=== PATIENT | female | born 1980 | race Hispanic/Latino ===

== ENCOUNTER 2016-08-17 09:51 | Inpatient (IN) | payer MEDICAID, OTHER ==
[2016-08-17 10:00] VITALS: BMI 40.2
[2016-08-17] MEDS ORDERED: Sodium Chloride 0.9% 1,000 ML IV STA (10:28)
[2016-08-17 10:47] LABS: BASO # 0.1 K/uL (0.0-0.2); BASO % 0.6 % (0.0-2.0); EOS # 0.3 K/uL (0.0-0.7); EOS % 2.1 % (0.0-4.0); HEMATOCRIT 38.4 % (34.0-47.0); LYMPH # 1.8 K/uL (1.0-4.3); LYMPH % 15.2 % (20.0-40.0); MEAN CELL VOLUME 91.7 fl (81.0-99.0); MEAN CORPUSCULAR HEMOGLOBIN 30.3 pg (27.0-31.0); MEAN CORPUSCULAR HGB CONC 33.1 g/dL (33.0-37.0); MEAN PLATELET VOLUME 9.1 fl (7.2-11.7); MONO # 0.6 K/uL (0.0-0.8); MONO % 5.3 % (0.0-10.0); NEUT # 9.3 K/uL (1.8-7.0); NEUT % 76.8 % (50.0-75.0); NRBC % 0.1 % (0.0-0.0); RED CELL DISTRIBUTION WIDTH 12.6 % (11.5-14.5); WHITE BLOOD COUNT 12.1 K/uL (4.8-10.8)
[2016-08-17 10:50] LABS: ALB/GLOB RATIO 1.1 (1.0-2.1); ALKALINE PHOSPHATASE 82 U/L (38-126); ALT/SGPT 38 U/L (9-52); AST/SGOT 23 U/L (14-36); BILIRUBIN,TOTAL 0.4 mg/dl (0.2-1.3); BLOOD UREA NITROGEN 13 mg/dl (7-17); CALCIUM 8.8 mg/dL (8.4-10.2); CARBON DIOXIDE 22 mmol/L (22-30); CHLORIDE 105 mmol/L (98-107); GFR AFRICAN-AMERICAN > 60; GLUCOSE,RANDOM 96 mg/dL (65-105); LIPASE 73 U/L (23-300); POTASSIUM 4.3 MMOL/L (3.6-5.0); SODIUM 135 mmol/l (132-148); TOTAL PROTEIN 8.1 G/DL (6.3-8.2)
--- NOTE | 2016-08-17 10:50 | RAD ---
HISTORY: epigastric pain COMPARISON: No prior. TECHNIQUE: Chest PA and lateral FINDINGS: LUNGS: No active pulmonary disease. PLEURA: No significant pleural effusion identified. No pneumothorax apparent. CARDIOVASCULAR: Normal. OSSEOUS STRUCTURES: No significant abnormalities. VISUALIZED UPPER ABDOMEN: Normal. OTHER FINDINGS: None. IMPRESSION: No active disease.
--- NOTE | 2016-08-17 11:01 | ED PDOC ---
HPI: Abdomen Time Seen by Provider: 08/17/16 10:05 Chief Complaint (Nursing): Abdominal Pain Chief Complaint (Provider): Abdominal Pain History Per: Patient History/Exam Limitations: no limitations Onset/Duration Of Symptoms: Days (x1 day) Current Symptoms Are (Timing): Still Present Additional Complaint(s): 35 y/o female who presents to the emergency department with a complaint of an upper abdominal pain that radiates towards the back since last night. Reports vomiting x1 with yellow discharge (non-bloody). denies all urinary complaints. Denies shortness of breath, chest pain, fever, runny nose, nausea, diarrhea, or urinary complications. Patient states she medicated with Tylenol without the relief of symptoms. No lower pain. No dysuria. PMD: Dr. Marilynn Lyons MD Past Medical History Reviewed: Historical Data, Nursing Documentation, Vital Signs Vital Signs: Last Vital Signs Temp 98.5 F 08/17/16 12:42 Pulse 72 08/17/16 12:42 Resp 16 08/17/16 12:42 BP 145/70 08/17/16 12:42 Pulse Ox 100 08/17/16 13:51 - Medical History PMH: No Chronic Diseases Denies: Chronic Kidney Disease - Surgical History Surgical History: Appendectomy Other surgeries: Tubal ligation - Family History Family History: States: Unknown Family Hx - Social History Current smoker - smoking cessation education provided: No Alcohol: None Drugs: Denies - Home Medications Home Medications: Ambulatory Orders Medication Instructions Recorded Ergocalciferol (Vitamin D2) 1 cap PO QWK 10/26/15 [Vitamin D2] Naproxen [Naprosyn] 1 tab PO PRN PRN 10/26/15 Cyclobenzaprine [Cyclobenzaprine 10 mg PO TID PRN #20 tab 04/04/16 HCl] Naproxen [Naprosyn] 500 mg PO BID #20 tab 04/04/16 - Allergies Allergies/Adverse Reactions: Allergies Allergy/AdvReac Type Severity Reaction Status Date / Time No Known Allergies Allergy Verified 04/04/16 14:56 Review of Systems ROS Statement: Except As Marked, All Systems Reviewed And Found Negative Constitutional: Negative for: Fever ENT: Negative for: Nose Discharge Cardiovascular: Negative for: Chest Pain Respiratory: Negative for: Shortness of Breath Gastrointestinal: Positive for: Vomiting (x1 episode, yellow color), Abdominal Pain (Epigastric). Negative for: Nausea, Diarrhea, Hematemesis Genitourinary Female: Negative for: Dysuria, Frequency, Incontinence, Hematuria Neurological: Negative for: Weakness Physical Exam - Reviewed Nursing Documentation Reviewed: Yes Vital Signs Reviewed: Yes - Physical Exam Appears: Positive for: Non-toxic, No Acute Distress Head Exam: Positive for: ATRAUMATIC, NORMOCEPHALIC Skin: Positive for: Normal Color, Warm, Dry Eye Exam: Positive for: Normal appearance. Negative for: Conjunctival injection Neck: Positive for: Normal, Supple Cardiovascular/Chest: Positive for: Regular Rate, Rhythm. Negative for: Murmur Respiratory: Positive for: Normal Breath Sounds. Negative for: Accessory Muscle Use, Respiratory Distress Gastrointestinal/Abdominal: Positive for: Tenderness (Epigastric). Negative for : Soft, Distended Back: Positive for: Normal Inspection. Negative for: L CVA Tenderness, R CVA Tenderness Extremity: Positive for: Normal ROM. Negative for: Tenderness, Pedal Edema Neurologic/Psych: Positive for: Alert, Oriented - Laboratory Results Result Diagrams: 08/17/16 10:35 08/17/16 10:35 Interpretation Of Abn Labs: 12.1 wbc - ECG ECG: Positive for: Interpreted By Me, Viewed By Me ECG Rhythm: Positive for: Normal QRS, Normal ST Segment, Sinus Rhythm O2 Sat by Pulse Oximetry: 100 (RA) Pulse Ox Interpretation: Normal - Radiology X-Ray: Interpreted by Me, Viewed By Ok X-Ray Interpretation: No Acute Disease - Progress ED Course And Treament: 1349: Stable. Spoke with Dr. Aponte. Will consult. States clinically cholecystits. Will need admit. Spoke with Dr. Mckinnon, pt. pcp. Wants Dr. Villanueva to admit. 1415: Spoke with Dr. Villanueva. Will admit medsurg and give further orders when pt. reaches floor. Medical Decision Making Medical Decision Making: Time: 10:05 Initial impression: Abdominal pain Initial plan: --Electrocardiogram Stat --COMP Metabolic Panel --Lipase Stat --Troponin I stat --ED Urine (POC) --EKG-ED (EDNURTX) Stat --CBC w/ differential --Sodium Chloride 1,000 ml IV 1,000 mls.hr --Pepcid 20 mg IVP --Abdomen Limited US --Revaluation Time: 10:48 Chest X-ray FINDINGS: LUNGS: No active pulmonary disease. PLEURA: No significant pleural effusion identified. No pneumothorax apparent. CARDIOVASCULAR: Normal. OSSEOUS STRUCTURES: No significant abnormalities. VISUALIZED UPPER ABDOMEN: Normal. OTHER FINDINGS: None. IMPRESSION: No active disease. Time: 12:38 --Abdomen US FINDINGS: LIVER: Measures 16 cm in length. Diffusely increased echogenicity of the liver parenchyma. There is an area of mild hypo echogenicity adjacent to the gallbladder representing focal fatty sparing. A possible subtle area of increased density seen on the prior CT scan within the anterior dome of the liver on axial image 17 is not as well seen on this ultrasound exam. This may represent subcapsular hemangioma or another area of focal fatty sparing. No intrahepatic ductal dilatation was seen. GALLBLADDER: Single 2 centimeter gallstone in the gallbladder. No gallbladder wall thickening is identified. No pericholecystic fluid. Gallbladder wall measures under 2 millimeters. A small amount of sonographic Sims sign was elicited by the technologist. This is nonspecific. COMMON BILE DUCT: Measures 4-5 mm. No stones. No dilatation. PANCREAS: Pancreas is mildly heterogeneous in echogenicity without focal mass. No definite peripancreatic inflammatory changes are seen. The tail of the pancreas was obscured by bowel gas. RIGHT KIDNEY: Measures 10.5 cm in length. There is evidence of a round echogenic solid mass in the antral-lateral aspect of the midpole of the right kidney. This was seen on the prior CT scan. On the present examination this measures 2.4 centimeters x 2.2 centimeters. This is unchanged from the measurements on the prior study. This is more than likely apprenticeship training representative of an angiomyolipoma. No hydronephrosis was seen. No renal calculus or new mass in the right kidney is noted. AORTA: No aneurysmal dilatation. IVC: Unremarkable. OTHER FINDINGS: No ascites is seen. IMPRESSION: Single 2 centimeter gallstone. No gallbladder wall thickening or pericholecystic fluid seen to suggest acute cholecystitis. Sonographic Isms' s sign was elicited, nonspecific. Stable echogenic soft tissue mass in the lateral aspect of the midpole of the right kidney from prior CT scan from 2012. This probably represents an angiomyolipoma. The should be followed clinically as these are at increased risk for bleeding. This was discussed with the emergency room physician at the time of the dictation. Diffuse fatty infiltration of the liver with focal fatty sparing adjacent to the gallbladder. --Pending surgical for consult. Scribe Attestation: Documented by Li Medina, acting as a scribe for Ra Tubbs MD. Provider Scribe Attestation: All medical record entries made by the Scribe were at my direction and personally dictated by me. I have reviewed the chart and agree that the record accurately reflects my personal performance of the history, physical exam, medical decision making, and the department course for this patient. I have also personally directed, reviewed, and agree with the discharge instructions and disposition. Disposition - Clinical Impression Clinical Impression: Biliary colic, Cholecystitis - Patient ED Disposition Is Patient to be Admitted: Yes Counseled Patient/Family Regarding: Studies Performed, Diagnosis - Disposition Disposition Time: 14:15 Condition: FAIR - Pt Status Changed To: Hospital Disposition Of: Inpatient - Admit Certification Admit to Inpatient:: After my assessment, the patient will require hospitalization for at least two midnights. This is because of the severity of symptoms shown, intensity of services needed, and/or the medical risk in this patient being treated as an outpatient. - POA Present On Arrival: None
--- NOTE | 2016-08-17 12:40 | US ---
HISTORY: gallstones and pain COMPARISON: CT scan 11/29/2012 TECHNIQUE: Sonographic evaluation of the right upper quadrant of the abdomen. FINDINGS: LIVER: Measures 16 cm in length. Diffusely increased echogenicity of the liver parenchyma. There is an area of mild hypo echogenicity adjacent to the gallbladder representing focal fatty sparing. A possible subtle area of increased density seen on the prior CT scan within the anterior dome of the liver on axial image 17 is not as well seen on this ultrasound exam. This may represent subcapsular hemangioma or another area of focal fatty sparing. No intrahepatic ductal dilatation was seen. GALLBLADDER: Single 2 centimeter gallstone in the gallbladder. No gallbladder wall thickening is identified. No pericholecystic fluid. Gallbladder wall measures under 2 millimeters. A small amount of sonographic Sims sign was elicited by the technologist. This is nonspecific. COMMON BILE DUCT: Measures 4-5 mm. No stones. No dilatation. PANCREAS: Pancreas is mildly heterogeneous in echogenicity without focal mass. No definite peripancreatic inflammatory changes are seen. The tail of the pancreas was obscured by bowel gas. RIGHT KIDNEY: Measures 10.5 cm in length. There is evidence of a round echogenic solid mass in the antral-lateral aspect of the midpole of the right kidney. This was seen on the prior CT scan. On the present examination this measures 2.4 centimeters x 2.2 centimeters. This is unchanged from the measurements on the prior study. This is more than likely field representative/health education of an angiomyolipoma. No hydronephrosis was seen. No renal calculus or new mass in the right kidney is noted. AORTA: No aneurysmal dilatation. IVC: Unremarkable. OTHER FINDINGS: No ascites is seen. IMPRESSION: Single 2 centimeter gallstone. No gallbladder wall thickening or pericholecystic fluid seen to suggest acute cholecystitis. Sonographic Sims's sign was elicited, nonspecific. Stable echogenic soft tissue mass in the lateral aspect of the midpole of the right kidney from prior CT scan from 2012. This probably represents an angiomyolipoma. The should be followed clinically as these are at increased risk for bleeding. This was discussed with the emergency room physician at the time of the dictation. Diffuse fatty infiltration of the liver with focal fatty sparing adjacent to the gallbladder.
[2016-08-17] MEDS ORDERED: Piperacillin/Tazobact 3.375 GM in Sodium Chloride 0.9% 100 ML IV STA (13:51)
[2016-08-17] MEDS ORDERED: Piperacillin/Tazobact 3.375 gm Inj IVPB ONE (14:15)
[2016-08-17] MEDS: Sodium Chloride 0.9% 1,000 ML IV SCH (17:10)
[2016-08-17] MEDS: Piperacillin/Tazobact 3.375 GM in Sodium Chloride 0.9% 100 ML IVPB SCH (20:30)
--- NOTE | 2016-08-17 20:49 | CP.PCM.CON ---
<Bartolome Sifuentes - Last Filed: 08/17/16 20:49> History of Present Illness - History of Present Illness History of Present Illness: General Surgery Consult Re: Cholecystitis vs cholelithiasis HPI: 35F presenting to ER with RUQ abd pain since last night. Radiates to back. + nausea, 1 episode of NBNB emesis. Tried tylenol without relief. No F/C, SOB, diarrhea, dysuria. Currently has nausea and an episode of bilious emesis (50cc) . PMH: Denies PSH: Appendectomy, tubal ligation SH: No tobacco, EtOH, Drug use All: NKDA Meds: Denies Review of Systems - Review of Systems All systems: reviewed and no additional remarkable complaints except (as per HPI ) Past Patient History - Infectious Disease Hx of Infectious Diseases: None - Past Medical History & Family History Past Medical History?: Yes - Past Social History Smoking Status: Never Smoked - CARDIAC Hx Cardiac Disorders: No - PULMONARY Hx Respiratory Disorders: No - NEUROLOGICAL Hx Neurological Disorder: No - HEENT Hx HEENT Problems: Yes (GLASSES) - RENAL Hx Chronic Kidney Disease: No - ENDOCRINE/METABOLIC Hx Endocrine Disorders: No - HEMATOLOGICAL/ONCOLOGICAL Hx Blood Disorders: No Hx AIDS: No Hx Human Immunodeficiency Virus (HIV): No - INTEGUMENTARY Hx Dermatological Problems: No - MUSCULOSKELETAL/RHEUMATOLOGICAL Hx Musculoskeletal Disorders: No Hx Falls: No - GASTROINTESTINAL Hx Gastrointestinal Disorders: No - GENITOURINARY/GYNECOLOGICAL Hx Reproductive Disorders: Yes (ABNORMAL UTERINE BLEEDING) - PSYCHIATRIC Hx Psychophysiologic Disorder: No Hx Substance Use: No - SURGICAL HISTORY Hx Appendectomy: Yes Hx Tubal Ligation: Yes - ANESTHESIA Hx Anesthesia: Yes Hx Anesthesia Reactions: No Hx Malignant Hyperthermia: No Has any member of the family had a problem w/ anesthesia?: No Meds Allergies/Adverse Reactions: Allergies Allergy/AdvReac Type Severity Reaction Status Date / Time No Known Allergies Allergy Verified 04/04/16 14:56 - Medications Medications: Current Medications Sodium Chloride (Sodium Chloride 0.9%) 1,000 mls @ 125 mls/hr IV .Q8H [facility] Stop: 08/18/16 16:16 Last Admin: 08/17/16 17:10 Dose: 125 mls/hr Piperacillin Sod/Tazobactam (Sod 3.375 gm/ Sodium Chloride) 100 mls @ 100 mls/ hr IVPB Q12 LEW Last Admin: 08/17/16 20:30 Dose: 100 mls/hr Morphine Sulfate (Morphine) 4 mg IVP Q4 PRN PRN Reason: Pain, moderate (4-7) Last Admin: 08/17/16 17:10 Dose: 4 mg Ondansetron HCl (Zofran Inj) 4 mg IVP Q4 PRN PRN Reason: Nausea/Vomiting Last Admin: 08/17/16 19:44 Dose: 4 mg Physical Exam - Constitutional Appears: Non-toxic, No Acute Distress - Head Exam Head Exam: ATRAUMATIC, NORMOCEPHALIC - Eye Exam Eye Exam: EOMI. absent: Scleral icterus - ENT Exam ENT Exam: Mucous Membranes Moist Additional comments: trachea midline - Respiratory Exam Respiratory Exam: NORMAL BREATHING PATTERN. absent: Respiratory Distress - GI/Abdominal Exam GI & Abdominal Exam: Guarding (in RUQ), Soft, Tenderness (in RUQ and epigastrum) . absent: Distended, Firm, Rigid Additional comments: gallbladder palpable, + murphys - Extremities Exam Extremities exam: Positive for: normal capillary refill, pedal pulses present. Negative for: calf tenderness - Back Exam Back exam: absent: CVA tenderness (L), CVA tenderness (R) - Neurological Exam Neurological exam: Alert, Oriented x3 - Psychiatric Exam Psychiatric exam: Normal Affect, Normal Mood - Skin Skin Exam: Dry, Warm Results - Vital Signs Recent Vital Signs: Last Vital Signs Temp 98.3 F 08/17/16 16:07 Pulse 74 08/17/16 16:07 Resp 16 08/17/16 16:07 BP 129/82 08/17/16 16:07 Pulse Ox 98 08/17/16 16:07 - Labs Result Diagrams: 08/17/16 10:35 08/17/16 10:35 - Imaging and Cardiology US - abdomen Status: Image reviewed by me, Report reviewed by me Additional comment: 2cm stone Assessment & Plan - Assessment and Plan (Free Text) Assessment: 35F with biliary colic Plan: F/U AM labs NPO p MN Morphine Zofran Zosyn IVF D/W Dr. Jonnathan Sifuentes PGY3 <Dav De Santiago - Last Filed: 08/17/16 21:43> Meds - Medications Medications: Current Medications Sodium Chloride (Sodium Chloride 0.9%) 1,000 mls @ 125 mls/hr IV .Q8H LEW Stop: 08/18/16 16:16 Last Admin: 08/17/16 17:10 Dose: 125 mls/hr Piperacillin Sod/Tazobactam (Sod 3.375 gm/ Sodium Chloride) 100 mls @ 100 mls/ hr IVPB Q12 LEW Last Admin: 08/17/16 20:30 Dose: 100 mls/hr Morphine Sulfate (Morphine) 4 mg IVP Q4 PRN PRN Reason: Pain, moderate (4-7) Last Admin: 08/17/16 17:10 Dose: 4 mg Ondansetron HCl (Zofran Inj) 4 mg IVP Q4 PRN PRN Reason: Nausea/Vomiting Last Admin: 08/17/16 19:44 Dose: 4 mg Results - Vital Signs Recent Vital Signs: Last Vital Signs Temp 98.3 F 08/17/16 16:07 Pulse 74 08/17/16 16:07 Resp 16 08/17/16 16:07 BP 129/82 08/17/16 16:07 Pulse Ox 98 08/17/16 16:07 - Labs Result Diagrams: 08/17/16 10:35 08/17/16 10:35 Attending/Attestation - Attestation I have personally seen and examined this patient.: Yes I have fully participated in the care of the patient.: Yes I have reviewed all pertinent clinical information: Yes Notes (Text): 08/17/16 21:42 Pt was seen and examined at bedside on 08/17/16 Agree with above note and assessment Pt with Cholelithiasis with Leucocystosis C/w IV antibiotics Liquid diet Repeat CBC and LFTs Plan d/w pt in detail Risk and benefit explained in detail
[2016-08-18] MEDS: Sodium Chloride 0.9% 1,000 ML IV SCH ×2 (02:53→08:35)
[2016-08-18 07:10] LABS: BASO # 0.1 K/uL (0.0-0.2); BASO % 0.6 % (0.0-2.0); EOS # 0.3 K/uL (0.0-0.7); EOS % 2.9 % (0.0-4.0); HEMATOCRIT 34.8 % (34.0-47.0); LYMPH # 2.4 K/uL (1.0-4.3); LYMPH % 20.3 % (20.0-40.0); MEAN CELL VOLUME 92.9 fl (81.0-99.0); MEAN CORPUSCULAR HEMOGLOBIN 30.2 pg (27.0-31.0); MEAN CORPUSCULAR HGB CONC 32.5 g/dL (33.0-37.0); MEAN PLATELET VOLUME 9.5 fl (7.2-11.7); MONO % 8.6 % (0.0-10.0); NEUT # 7.9 K/uL (1.8-7.0); NEUT % 67.6 % (50.0-75.0); NRBC % 0.2 % (0.0-0.0); RED CELL DISTRIBUTION WIDTH 12.7 % (11.5-14.5); WHITE BLOOD COUNT 11.7 K/uL (4.8-10.8)
[2016-08-18 07:25] LABS: PARTIAL THROMBOPLASTIN TIME 28.7 SECONDS (23.3-32.5)
[2016-08-18 07:39] LABS: BLOOD UREA NITROGEN 10 mg/dl (7-17); CARBON DIOXIDE 24 mmol/L (22-30); CHLORIDE 106 mmol/L (98-107); GFR AFRICAN-AMERICAN > 60; GLUCOSE,RANDOM 92 mg/dL (65-105); POTASSIUM 3.8 MMOL/L (3.6-5.0); SODIUM 142 mmol/l (132-148)
[2016-08-18] MEDS: Piperacillin/Tazobact 3.375 GM in Sodium Chloride 0.9% 100 ML IVPB SCH ×2 (08:33→20:02)
--- NOTE | 2016-08-18 08:46 | CP.PCM.PCO ---
Physician Communication Note - Physician Communication Note Physician Communication Note: pt for OR kael tenorio today
--- NOTE | 2016-08-18 09:34 | CARD ---
APPROVED REPORT EKG Measurement Heart [id number] MN [id number] [id number] <Conclusion> Normal sinus rhythm Normal ECG
--- NOTE | 2016-08-18 10:48 | CP.PCM.HP ---
History of Present Illness - History of Present Illness History of Present Illness: This is a 35 y/o female admitted for on and off RUQ pain. seen at the Er and noted elevated WBC 12 k and cholelithiasis. No significant medical history. Present on Admission - Present on Admission Any Indicators Present on Admission: No History of DVT/PE: No History of Uncontrolled Diabetes: No Urinary Catheter: No Decubitus Ulcer Present: No Review of Systems - Gastrointestinal Gastrointestinal: Abdominal Pain Past Patient History - Infectious Disease Hx of Infectious Diseases: None - Past Medical History & Family History Past Medical History?: Yes - Past Social History Smoking Status: Never Smoked - CARDIAC Hx Cardiac Disorders: No - PULMONARY Hx Respiratory Disorders: No - NEUROLOGICAL Hx Neurological Disorder: No - HEENT Hx HEENT Problems: Yes (GLASSES) - RENAL Hx Chronic Kidney Disease: No - ENDOCRINE/METABOLIC Hx Endocrine Disorders: No - HEMATOLOGICAL/ONCOLOGICAL Hx Blood Disorders: No Hx AIDS: No Hx Human Immunodeficiency Virus (HIV): No - INTEGUMENTARY Hx Dermatological Problems: No - MUSCULOSKELETAL/RHEUMATOLOGICAL Hx Musculoskeletal Disorders: No Hx Falls: No - GASTROINTESTINAL Hx Gastrointestinal Disorders: No - GENITOURINARY/GYNECOLOGICAL Hx Reproductive Disorders: Yes (ABNORMAL UTERINE BLEEDING) - PSYCHIATRIC Hx Psychophysiologic Disorder: No Hx Substance Use: No - SURGICAL HISTORY Hx Appendectomy: Yes Hx Tubal Ligation: Yes - ANESTHESIA Hx Anesthesia: Yes Hx Anesthesia Reactions: No Hx Malignant Hyperthermia: No Has any member of the family had a problem w/ anesthesia?: No Meds Allergies/Adverse Reactions: Allergies Allergy/AdvReac Type Severity Reaction Status Date / Time No Known Allergies Allergy Verified 04/04/16 14:56 Physical Exam - Head Exam Head Exam: NORMAL INSPECTION - Eye Exam Eye Exam: Normal appearance - ENT Exam ENT Exam: Mucous Membranes Moist - Respiratory Exam Respiratory Exam: Clear to Auscultation Bilateral - Cardiovascular Exam Cardiovascular Exam: REGULAR RHYTHM - GI/Abdominal Exam GI & Abdominal Exam: Normal Bowel Sounds - Neurological Exam Neurological exam: CN II-XII Intact, Oriented x3 Results - Vital Signs Recent Vital Signs: Last Vital Signs Temp 98.2 F 08/18/16 09:00 Pulse 73 08/18/16 09:00 Resp 20 08/18/16 09:00 BP 109/71 08/18/16 09:00 Pulse Ox 98 08/18/16 07:53 - Labs Result Diagrams: 08/18/16 05:50 08/18/16 05:50 Labs: Laboratory Results - last 24 hr 08/18/16 05:50 WBC 11.7 H RBC 3.74 L Hgb 11.3 L Hct 34.8 MCV 92.9 MCH 30.2 MCHC 32.5 L RDW 12.7 Plt Count 256 MPV 9.5 Neut % (Auto) 67.6 Lymph % (Auto) 20.3 Mathews % (Auto) 8.6 Eos % (Auto) 2.9 Baso % (Auto) 0.6 Neut # 7.9 H Lymph # 2.4 Mathews # 1.0 H Eos # 0.3 Baso # 0.1 PT 10.7 INR 1.03 APTT 28.7 Sodium 142 Potassium 3.8 Chloride 106 Carbon Dioxide 24 Anion Gap 16 BUN 10 Creatinine 0.5 L Est GFR ( Amer) > 60 Est GFR (Non-Af Amer) > 60 Random Glucose 92 Calcium 8.0 L Assessment & Plan (1) Cholecystitis Status: Acute (2) Cholelithiasis Status: Acute - Assessment and Plan (Free Text) Plan: cont meds cont tx NPO Hydrate pain meds surgical eval ID eval. IV antibiotics. medically stable for surgery
[2016-08-18] MEDS ORDERED: Bupivacaine 0.5% Inj(30mL) ONE (14:31)
[2016-08-18] MEDS ORDERED: Lidocaine 1% Inj (20ml) ONE (14:31)
[2016-08-18] MEDS ORDERED: Midazolam 2 MG/2 ML VIAL ONE (15:00)
[2016-08-18] MEDS ORDERED: Propofol 10 mg/ml Inj (20 ML) ONE ×2 (15:00→16:27)
[2016-08-18] MEDS ORDERED: Rocuronium 10 mg/ml (5 ml) ONE (15:00)
[2016-08-18] MEDS ORDERED: Neostigmine Methylsulfate 3mg/3ml Syringe IV ONE (15:01)
[2016-08-18] MEDS ORDERED: Lidocaine 1% Inj (20ml) IJ ONE (16:38)
[2016-08-18] MEDS ORDERED: Bupivacaine 0.5% 50 ML IJ ONE (16:38)
[2016-08-18] MEDS ORDERED: Lactated Ringer's 1,000 ML IV ONE (16:52)
--- NOTE | 2016-08-18 17:02 | PCM.SURG1 ---
Surgeon's Initial Post Op Note - Surgeon's Notes Surgeon: Dr De Santiago Mix Crusher Operator: Dr Phelps PGY2, Dr Beard PGY1 Type of Anesthesia: General Endo Pre-Operative Diagnosis: Cholelithiasis Operative Findings: acute cholecystitis Post-Operative Diagnosis: acute cholecystitis Operation Performed: laparoscopic cholecystectomy Specimen/Specimens Removed: gallbladder Estimated Blood Loss: EBL {In ML}: 15 Blood Products Given: N/A Drains Used: No Drains Post-Op Condition: Good Date of Surgery/Procedure: 08/18/16 Time of Surgery/Procedure: 17:02
[2016-08-18] MEDS: HYDROmorphone 0.5 mg/0.5 ml ISec IVP PRN ×4 (17:05→22:13)
--- NOTE | 2016-08-18 18:48 | OP ---
PROCEDURE DATE: 08/18/2016 PREOPERATIVE DIAGNOSES: 1. Acute cholecystitis and cholelithiasis. 2. Morbid obesity, 3. Possible postoperative adhesions due to previous appendectomy. POSTOPERATIVE DIAGNOSES: 1. Acute on chronic cholecystitis. 2. Cholelithiasis. 3. Extensive postinfectious and postoperative adhesion. 4. Morbid obesity. PROCEDURE DONE: 1. Laparoscopic cholecystectomy. 2. Laparoscopic extensive lysis of adhesion. SURGEON: Dav De Santiago MD ENTRY LEVEL PROJECT COORDINATOR: Ethan Phelps, PGY-2 resident ANESTHESIA: General endotracheal tube anesthesia. ESTIMATED BLOOD LOSS: Around 50 mL. DRAINS: None. PATHOLOGY: Gallbladder with gallstone was sent for pathology. COMPLICATIONS: None. INTRAOPERATIVE FINDINGS: The patient had extensive postinfectious and postoperative adhesion. There was a phlegmon of the gallbladder, omentum and duodenum, and there was extensive inflammation in the right upper quadrant. INTRAOPERATIVE STEPS: This 35-year-old female was diagnosed with acute cholecystitis and cholelithiasis and patient was consented for laparoscopic cholecystectomy, possible open. Brought to the OR, placed supine on the operating table. After induction of the anesthesia, abdomen was prepped and draped in a usual sterile fashion. The supraumbilical transverse 1.5 cm incision was made. After incising skin and subcutaneous tissue, the fascia was incised in the line of incision. Chante port was placed, pneumo was created. After creation of pneumoperitoneum, the 12 mm port was placed in the midline just below the costal margin. Another two 5 mm ports were placed in the midclavicular and anterior axillary line. After the grasper and dissector was introduced, the patient found to have extensive edema and thickened gallbladder with the phlegmon, and the first extensive lysis of adhesion was done. The gallbladder was aspirated and gallbladder was retracted cranially. Calot's triangle dissection was done. The patient also had extensive inflammatory adhesion that was taken down. Hemostasis was achieved. Cystic duct and cystic artery were identified and clipped at 3 places and cut in between 2 clips near the gallbladder. Gallbladder was dissected free from the gallbladder fossa, taken in the EndoCatch bag, taken out through the umbilical port site and sent off the table for the pathology. There was a proper hemostasis in each and every part of the procedure. After suction irrigation of the right upper quadrant and gallbladder fossa and after proper hemostasis, all the ports were taken out under vision. Pneumo was deflated. Umbilical port site was closed in 2 layers: The fascia with 0 Vicryl interrupted sutures, the skin with a 4-0 Monocryl. Dry sterile dressing was applied. The patient tolerated the procedure well. Count of instruments and gauze was correct. There was no apparent complication. The patient tolerated the procedure well. The patient was sent to the postanesthesia care unit in stable condition. Dav De Santiago MD cc: [id number] TT: 08/18/2016 18:47:31 meagan RIVAS
[2016-08-19] MEDS: HYDROmorphone 0.5 mg/0.5 ml ISec IVP PRN ×2 (01:40→06:43)
[2016-08-19 06:39] LABS: HEMATOCRIT 33.6 % (34.0-47.0); MEAN CELL VOLUME 93.5 fl (81.0-99.0); MEAN CORPUSCULAR HGB CONC 32.1 g/dL (33.0-37.0); RED CELL DISTRIBUTION WIDTH 12.8 % (11.5-14.5); WHITE BLOOD COUNT 13.4 K/uL (4.8-10.8)
[2016-08-19 06:57] LABS: BLOOD UREA NITROGEN 7 mg/dl (7-17); CARBON DIOXIDE 25 mmol/L (22-30); CHLORIDE 103 mmol/L (98-107); GFR AFRICAN-AMERICAN > 60; GLUCOSE,RANDOM 73 mg/dL (65-105); POTASSIUM 4.2 MMOL/L (3.6-5.0); SODIUM 140 mmol/l (132-148)
[2016-08-19] MEDS ORDERED: Oxycodone/Acetaminophen 5/325 mg Tab PO PRN (07:25)
--- NOTE | 2016-08-19 07:28 | CP.PCM.PN ---
Subjective - Date & Time of Evaluation Date of Evaluation: 08/19/16 Time of Evaluation: 06:40 - Subjective Subjective: Gen Surg: Dr. De Santiago Patient seen and examined at bedside. Reports having generalized abdominal pain/ tenderness. Pt states she has tolerated liquids. Denies nausea/vomiting. NAEO. Review of vitals is normal. Objective - Vital Signs/Intake and Output Vital Signs (last 24 hours): Temp Pulse Resp BP Pulse Ox 98.6 F 84 19 119/79 98 08/19/16 05:30 08/19/16 05:30 08/19/16 05:30 08/19/16 05:30 08/19/16 05:30 - Medications Medications: Current Medications Hydromorphone HCl (Dilaudid) 0.5 mg IVP Q3 PRN PRN Reason: Pain, moderate (4-7) Last Admin: 08/19/16 06:43 Dose: 0.5 mg Piperacillin Sod/Tazobactam (Sod 3.375 gm/ Sodium Chloride) 100 mls @ 100 mls/ hr IVPB Q12 LEW Last Admin: 08/18/16 20:02 Dose: 100 mls/hr Ondansetron HCl (Zofran Inj) 4 mg IVP Q4 PRN PRN Reason: Nausea/Vomiting Last Admin: 08/17/16 19:44 Dose: 4 mg Oxycodone/Acetaminophen (Percocet 5/325 Mg Tab) 2 tab PO Q6 PRN PRN Reason: Pain, moderate (4-7) Stop: 08/22/16 07:26 - Labs Labs: 08/19/16 05:25 08/19/16 05:25 PT 10.7 SECONDS (9.6-11.2) 08/18/16 05:50 INR 1.03 (0.92-1.08) 08/18/16 05:50 APTT 28.7 SECONDS (23.3-32.5) 08/18/16 05:50 - Constitutional Appears: No Acute Distress - Head Exam Head Exam: ATRAUMATIC - Eye Exam Eye Exam: EOMI, Normal appearance - ENT Exam ENT Exam: Mucous Membranes Moist - Respiratory Exam Respiratory Exam: NORMAL BREATHING PATTERN - Cardiovascular Exam Cardiovascular Exam: +S1, +S2 - GI/Abdominal Exam GI & Abdominal Exam: Soft, Tenderness - Neurological Exam Neurological Exam: Alert, Awake, Oriented x3 - Psychiatric Exam Psychiatric exam: Normal Mood - Skin Skin Exam: Dry, Intact, Warm Assessment and Plan - Assessment and Plan (Free Text) Assessment: 35F s/p laparoscopic cholecystectomy POD #1 -Clear for d/c from surgical standpoint as long as pt tolerates diet -C/w Abx -C/w analgesics/anti-emetics -DVT/GI ppx -Encourage ambulation & IS us -F/u w/ Dr. De Santiago in 7-10 days -D/w Dr. De Santiago
[2016-08-19 08:12] VITALS: BP 115/73; PULSE 79; RESP 20; TEMP 98.9; O2SAT 96
[2016-08-19] MEDS: Piperacillin/Tazobact 3.375 GM in Sodium Chloride 0.9% 100 ML IVPB SCH (08:12)
--- NOTE | 2016-08-19 10:26 | CP.PCM.CON ---
History of Present Illness - History of Present Illness History of Present Illness: 5F presenting to ER with RUQ abd pain since last night. Radiates to back. + nausea, 1 episode of NBNB emesis. Tried tylenol without relief. No F/C, SOB, diarrhea, dysuria. Currently has nausea and an episode of bilious emesis (50cc) . PMH: Denies PSH: Appendectomy, tubal ligation SH: No tobacco, EtOH, Drug use All: NKDA Meds: Denies Review of Systems - Constitutional Constitutional: As Per HPI - EENT Eyes: absent: As Per HPI, Blind Spots, Blurred Vision, Change in Vision, Decreased Night Vision, Diplopia, Discharge, Dry Eye, Exophthalmos, Floaters, Irritation, Itchy Eyes, Loss of Peripheral Vision, Pain, Photophobia, Requires Corrective Lenses, Sees Flashes, Spots in Vision, Tunnel Vision, Other Visual Disturbances, Loss of Vision, Other Ears: absent: As Per HPI, Decreased Hearing, Ear Discharge, Ear Pain, Tinnitus, Abnormal Hearing, Disequilibrium, Dizziness, Other Nose/Mouth/Throat: absent: As Per HPI, Epistaxis, Nasal Congestion, Nasal Discharge, Nasal Obstruction, Nasal Trauma, Nose Pain, Post Nasal Drip, Sinus Pain, Sinus Pressure, Bleeding Gums, Change in Voice, Dental Pain, Dry Mouth, Dysphagia, Halitosis, Hoarsness, Lip Swelling, Mouth Lesions, Mouth Pain, Odynophagia, Sore Throat, Throat Swelling, Tongue Swelling, Facial Pain, Neck Pain, Neck Mass, Other - Breasts Breasts: absent: As Per HPI, Change in Shape, Mass, Pain, Nipple Discharge, Nipple Inversion, Skin Changes, Swelling, Other - Cardiovascular Cardiovascular: absent: As Per HPI, Acrocyanosis, Chest Pain, Chest Pain at Rest , Chest Pain with Activity, Claudication, Diaphoresis, Dyspnea, Dyspnea on Exertion, Edema, Irregular Heart Rhythm, Pain Radiating to Arm/Neck/Jaw, Leg Edema, Leg Ulcers, Lightheadedness, Orthopnea, Palpitations, Paroxysmal Nocturnal Dyspnea, Pedal Edema, Radiating Pain, Rapid Heart Rate, Slow Heart Rate, Syncope, Other - Respiratory Respiratory: absent: As Per HPI, Cough, Dyspnea, Hemoptysis, Dyspnea on Exertion , Wheezing, Snoring, Stridor, Pain on Inspiration, Chest Congestion, Excessive Mucous Production, Change in Mucous Color, Pain with Coughing, Other - Gastrointestinal Gastrointestinal: As Per HPI - Genitourinary Genitourinary: absent: As Per HPI, Change in Urinary Stream, Difficulty Urinating, Dysuria, Flank Pain, Hematuria, Pyuria, Nocturia, Urinary Incontinence, Urinary Frequency, Urinary Hesitance, Urinary Urgency, Voiding Freq/Small Amts, Freq UTI, Hx Renal/Bladder Calculi, Hx /Renal Surgery, Bladder Distension, Other - Reproductive: Female Reproductive:Female: absent: As Per HPI, Amenorrhea, Amenorrhea/ Control, Currently Menstual, Cycle <21 Days, Cycle >35 Days, Cycle Variable, Menses 1-7 Days, Menses >/= 8 Days, Menses Variable, Cycle > 4 Weeks Between, No Menses for 6 Months, Heavy Menses, Light Menses, Normal Menses, Spotting Between Cycles , S/P Hysterectomy, Menopausal, Post Menopausal, Premenarche, Abnormal Vaginal Bleeding, Dysmenorrhea, Dyspareunia, Genital Lesions, Genital Pruritis, Pelvic Pain, Prolapse Symptoms, Sexual Dysfunction, Vaginal Discharge, Vaginal Dryness , Vaginal Odor, Vaginal Pruritis, Other - Menstruation Menstruation: absent: As Per HPI, Amenorrhea, Amenorrhea/ Control, Currently Menstual, Cycle <21 Days, Cycle >35 Days, Cycle Variable, Menses 1-7 Days, Menses >/= 8 Days, Menses Variable, Cycle > 4 Weeks Between, No Menses for 6 Months, Heavy Menses, Light Menses, Normal Menses, Spotting Between Cycles , S/P Hysterectomy, Menopausal, Post Menopausal, Premenarche, Abnormal Vaginal Bleeding, Dysmenorrhea, Other - Musculoskeletal Musculoskeletal: absent: As Per HPI, Abnormal Gait, Arthralgias, Atrophy, Back Pain, Deformity, Joint Swelling, Limited Range of Motion, Loss of Height, Muscle Cramps, Muscle Weakness, Myalgias, Neck Pain, Numbness, Radiating Pain into Limb, Stiffness, Tingling, Other - Integumentary Integumentary: absent: As Per HPI, Acne, Alopecia, Bleeding Lesions, Change in Hair, Change in Nails, Change in Pigmentation, Changing Lesions, Dry Skin, Erythema, Furuncle, Hirsutism, Lesions, New Lesions, Non-Healing Lesions, Photosensitivity, Pruritus, Rash, Skin Pain, Skin Ulcer, Sores, Striae, Swelling , Unusual Bruising, Wounds, Jaundice, Other - Neurological Neurological: absent: As Per HPI, Abnormal Gait, Abnormal Hearing, Abnormal Movements, Abnormal Speech, Behavioral Changes, Burning Sensations, Confusion, Convulsions, Disequilibrium, Dizziness, Numbness, Focal Weakness, Frequent Falls , Headaches, Lack of Coordination, Loss of Vision, Memory Loss, Paresthesias, Radicular Pain, Restless Legs, Sensory Deficit, Syncope, Tingling, Tremor, Vertigo, Weakness, Other Visual Disturbances, Other - Psychiatric Psychiatric: absent: As Per HPI, Abnormal Sleep Pattern, Anhedonia, Anxiety, Auditory Hallucinations, Behavioral Changes, Change in Appetite, Change in Libido, Confusion, Depression, Difficulty Concentrating, Hallucinations, Homicidal Ideation, Hopelessness, Irritability, Memory Loss, Mood Swings, Panic Attacks, Paranoia, Suicidal Ideation, Visual Hallucinations, Tactile Hallucinations, Other - Endocrine Endocrine: absent: As Per HPI, Change in Body Appearance, Change in Libido, Cold Intolorance, Deepening of Voice, Excessive Sweating, Fatigue, Flushing, Heat Intolorance, Increase in Ring/Shoe/Hat Size, Palpitations, Polydipsia, Polyphagia, Polyuria, Other - Hematologic/Lymphatic Hematologic: absent: As Per HPI, Easy Bleeding, Easy Bruising, Lymphadenopathy, Other Past Patient History - Infectious Disease Hx of Infectious Diseases: None - Past Medical History & Family History Past Medical History?: Yes - Past Social History Smoking Status: Never Smoked - CARDIAC Hx Cardiac Disorders: No - PULMONARY Hx Respiratory Disorders: No - NEUROLOGICAL Hx Neurological Disorder: No - HEENT Hx HEENT Problems: Yes (GLASSES) - RENAL Hx Chronic Kidney Disease: No - ENDOCRINE/METABOLIC Hx Endocrine Disorders: No - HEMATOLOGICAL/ONCOLOGICAL Hx Blood Disorders: No Hx AIDS: No Hx Human Immunodeficiency Virus (HIV): No - INTEGUMENTARY Hx Dermatological Problems: No - MUSCULOSKELETAL/RHEUMATOLOGICAL Hx Musculoskeletal Disorders: No Hx Falls: No - GASTROINTESTINAL Hx Gastrointestinal Disorders: No - GENITOURINARY/GYNECOLOGICAL Hx Reproductive Disorders: Yes (ABNORMAL UTERINE BLEEDING) - PSYCHIATRIC Hx Psychophysiologic Disorder: No Hx Substance Use: No - SURGICAL HISTORY Hx Appendectomy: Yes Hx Tubal Ligation: Yes - ANESTHESIA Hx Anesthesia: Yes Hx Anesthesia Reactions: No Hx Malignant Hyperthermia: No Has any member of the family had a problem w/ anesthesia?: No Meds Allergies/Adverse Reactions: Allergies Allergy/AdvReac Type Severity Reaction Status Date / Time No Known Allergies Allergy Verified 04/04/16 14:56 - Medications Medications: Current Medications Hydromorphone HCl (Dilaudid) 0.5 mg IVP Q3 PRN PRN Reason: Pain, moderate (4-7) Last Admin: 08/19/16 06:43 Dose: 0.5 mg Piperacillin Sod/Tazobactam (Sod 3.375 gm/ Sodium Chloride) 100 mls @ 100 mls/ hr IVPB Q12 LEW Last Admin: 08/19/16 08:12 Dose: 100 mls/hr Ondansetron HCl (Zofran Inj) 4 mg IVP Q4 PRN PRN Reason: Nausea/Vomiting Last Admin: 08/17/16 19:44 Dose: 4 mg Oxycodone/Acetaminophen (Percocet 5/325 Mg Tab) 2 tab PO Q6 PRN PRN Reason: Pain, moderate (4-7) Stop: 08/22/16 07:26 Last Admin: 08/19/16 08:45 Dose: 1 tab Physical Exam - Constitutional Appears: Non-toxic - Head Exam Head Exam: ATRAUMATIC, NORMAL INSPECTION, NORMOCEPHALIC - Eye Exam Eye Exam: EOMI, PERRL. absent: Scleral icterus - ENT Exam ENT Exam: Mucous Membranes Dry, Normal External Ear Exam - Neck Exam Neck exam: Negative for: Lymphadenopathy - Respiratory Exam Respiratory Exam: Decreased Breath Sounds, NORMAL BREATHING PATTERN - Cardiovascular Exam Cardiovascular Exam: REGULAR RHYTHM, +S1, +S2 - GI/Abdominal Exam GI & Abdominal Exam: Diminished Bowel Sounds, Soft, Tenderness - Rectal Exam Rectal Exam: Deferred - Exam Exam: NORMAL INSPECTION - Extremities Exam Extremities exam: Positive for: pedal pulses present. Negative for: calf tenderness, pedal edema, tenderness - Back Exam Back exam: absent: CVA tenderness (L), CVA tenderness (R), paraspinal tenderness - Neurological Exam Neurological exam: Alert, CN II-XII Intact, Oriented x3, Reflexes Normal - Psychiatric Exam Psychiatric exam: Normal Mood - Skin Skin Exam: Dry, Intact Results - Vital Signs Recent Vital Signs: Last Vital Signs Temp 98.9 F 08/19/16 08:10 Pulse 79 08/19/16 08:10 Resp 20 08/19/16 08:10 BP 115/73 08/19/16 08:10 Pulse Ox 96 08/19/16 08:10 - Labs Result Diagrams: 08/19/16 05:25 08/19/16 05:25 Labs: Laboratory Results - last 24 hr 08/19/16 05:25 WBC 13.4 H RBC 3.59 L Hgb 10.8 L Hct 33.6 L MCV 93.5 MCH 30.0 MCHC 32.1 L RDW 12.8 Plt Count 219 Sodium 140 Potassium 4.2 Chloride 103 Carbon Dioxide 25 Anion Gap 16 BUN 7 Creatinine 0.5 L Est GFR ( Amer) > 60 Est GFR (Non-Af Amer) > 60 Random Glucose 73 Calcium 8.0 L Assessment & Plan (1) Biliary colic Status: Acute (2) Cholecystitis Status: Acute (3) Cholelithiasis Status: Acute
[2016-08-19] MEDS ORDERED: Pneumococcal 23-Valent Vaccine IM ONE (12:00)
[2016-08-19] MEDS ORDERED: Influenza Vaccine(5yr & older) 0.5 ML/45 MCG IM ONE (12:00)
--- NOTE | 2016-08-19 12:54 | CP.PCM.DIS ---
Provider - Provider Date of Admission: 08/17/16 14:13 Attending physician: Keanu Villanueva MD Primary care physician: Dr. Villanueva Consults: General surgery and ID Time Spent in preparation of Discharge (in minutes): 30 Diagnosis - Discharge Diagnosis (1) Cholecystitis Status: Acute Hospital Course - Lab Results Lab Results: Micro Results 08/17/16 16:20 Blood Blood Culture - Preliminary NO GROWTH AFTER 24 HOURS 08/17/16 16:20 Blood Blood Culture - Preliminary NO GROWTH AFTER 24 HOURS Most Recent Lab Values WBC 13.4 K/uL (4.8-10.8) H 08/19/16 05:25 RBC 3.59 Mil/uL (3.80-5.20) L 08/19/16 05:25 Hgb 10.8 g/dL (12.0-16.0) L 08/19/16 05:25 Hct 33.6 % (34.0-47.0) L 08/19/16 05:25 MCV 93.5 fl (81.0-99.0) 08/19/16 05:25 MCH 30.0 pg (27.0-31.0) 08/19/16 05:25 MCHC 32.1 g/dL (33.0-37.0) L 08/19/16 05:25 RDW 12.8 % (11.5-14.5) 08/19/16 05:25 Plt Count 219 K/uL (130-400) 08/19/16 05:25 MPV 9.5 fl (7.2-11.7) 08/18/16 05:50 Neut % (Auto) 67.6 % (50.0-75.0) 08/18/16 05:50 Lymph % (Auto) 20.3 % (20.0-40.0) 08/18/16 05:50 [place] % (Auto) 8.6 % (0.0-10.0) 08/18/16 05:50 Eos % (Auto) 2.9 % (0.0-4.0) 08/18/16 05:50 Baso % (Auto) 0.6 % (0.0-2.0) 08/18/16 05:50 Neut # 7.9 K/uL (1.8-7.0) H 08/18/16 05:50 Lymph # 2.4 K/uL (1.0-4.3) 08/18/16 05:50 [place] # 1.0 K/uL (0.0-0.8) H 08/18/16 05:50 Eos # 0.3 K/uL (0.0-0.7) 08/18/16 05:50 Baso # 0.1 K/uL (0.0-0.2) 08/18/16 05:50 PT 10.7 SECONDS (9.6-11.2) 08/18/16 05:50 INR 1.03 (0.92-1.08) 08/18/16 05:50 APTT 28.7 SECONDS (23.3-32.5) 08/18/16 05:50 Sodium 140 mmol/l (132-148) 08/19/16 05:25 Potassium 4.2 MMOL/L (3.6-5.0) 08/19/16 05:25 Chloride 103 mmol/L (98-107) 08/19/16 05:25 Carbon Dioxide 25 mmol/L (22-30) 08/19/16 05:25 Anion Gap 16 (10-20) 08/19/16 05:25 BUN 7 mg/dl (7-17) 08/19/16 05:25 Creatinine 0.5 mg/dL (0.7-1.2) L 08/19/16 05:25 Est GFR ( Amer) > 60 08/19/16 05:25 Est GFR (Non-Af Amer) > 60 08/19/16 05:25 Random Glucose 73 mg/dL (65-105) 08/19/16 05:25 Calcium 8.0 mg/dL (8.4-10.2) L 08/19/16 05:25 Total Bilirubin 0.4 mg/dl (0.2-1.3) 08/17/16 10:35 AST 23 U/L (14-36) 08/17/16 10:35 ALT 38 U/L (9-52) 08/17/16 10:35 Alkaline Phosphatase 82 U/L (38-126) 08/17/16 10:35 Troponin I < 0.0120 ng/mL (0.00-0.120) 08/17/16 10:35 Total Protein 8.1 G/DL (6.3-8.2) 08/17/16 10:35 Albumin 4.2 g/dL (3.5-5.0) 08/17/16 10:35 Globulin 3.9 gm/dL (2.2-3.9) 08/17/16 10:35 Albumin/Globulin Ratio 1.1 (1.0-2.1) 08/17/16 10:35 Lipase 73 U/L (23-300) 08/17/16 10:35 - Hospital Course Hospital Course: pt was admitted for cholecysitis, surgery was consulted, taken to OR for surgery. procedure went well. pt recovering from surgery as expected, cleared by surgery for discharge, medically stable. being discharged to complete course of PO antibiotics and to follow up with surgeon and PCP Discharge Exam - Head Exam Head Exam: ATRAUMATIC, NORMAL INSPECTION, NORMOCEPHALIC - Eye Exam Eye Exam: Normal appearance Pupil Exam: NORMAL ACCOMODATION - ENT Exam ENT Exam: Mucous Membranes Moist - Respiratory Exam Respiratory Exam: NORMAL BREATHING PATTERN - Cardiovascular Exam Cardiovascular Exam: REGULAR RHYTHM, +S1, +S2 - GI/Abdominal Exam GI & Abdominal Exam: Normal Bowel Sounds, Soft Additional comments: incision site neatly dressed, no drainage - Extremities Exam Extremities exam: normal inspection - Neurological Exam Neurological exam: Alert, CN II-XII Intact, Oriented x3 - Skin Skin Exam: Normal Color Discharge Plan - Discharge Medications Prescriptions: Levofloxacin [Levaquin] 500 mg PO DAILY #7 tablet oxyCODONE/Acetaminophen [Percocet 5/325 mg Tab] 2 tab PO Q6 PRN #20 tab PRN Reason: Pain, Severe (8-10) - Follow Up Plan Condition: FAIR Disposition: HOME/ ROUTINE Instructions: Cholecystitis (GEN), Gallstones (GEN) Additional Instructions: Complete all antibiotics Follow up with surgeon in 7-10days Follow up with your PCP in 1-2 weeks Referrals: FAMILY PROVIDER,NO [Family Provider] - Dav De Santiago MD [Staff Provider] -
== END 2016-08-19 13:39 | disposition home or self-care (01) | DRG 418 ==
LOC: H.ER 09:51 → H.ERHOLD 14:13 → H.MEDSURG1 15:10
PROVIDERS: ADMIT Family Medicine; ATTEND Family Medicine
PROC: 0DNW4ZZ Release Peritoneum, Percutaneous Endoscopic Approach (ICD-10-PCS; 2016-08-18)
PROC: 0FT44ZZ Resection of Gallbladder, Percutaneous Endoscopic Approach (ICD-10-PCS; principal; 2016-08-18 15:00)
PROC: 3E0234Z Introduction of Serum, Toxoid and Vaccine into Muscle, Percutaneous Approach (ICD-10-PCS; 2016-08-19)
DX: K80.12 Calculus of gallbladder with acute and chronic cholecystitis without obstruction (principal); Z68.41 Body mass index [BMI] 40.0-44.9, adult; E66.01 Morbid (severe) obesity due to excess calories; K66.0 Peritoneal adhesions (postprocedural) (postinfection); Z23 Encounter for immunization